=== PATIENT | male | born 1935 | race Caucasian/White ===

== ENCOUNTER 2024-02-20 13:50 | Inpatient (IN) | payer MEDICARE, SELFPAY ==
[2024-02-19] VITALS (17 sets, daily range): BP systolic 121–174; BP diastolic 59–116; PULSE 83–114; BMI 25.9; BMI 26.4
[2024-02-19 13:24] LABS: % Basophils 0.6 % (0-2); % Immature Granulocytes 0.2 % (0-0.5); % Lymphocytes 14.2 % (20.5-51.1); % Monocytes 10.9 % (1.7-9.3); % Neutrophils 71.1 % (42.2-75.2); Absolute Eosinophils 0.2 10^3/uL (0-0.7); Absolute Lymphocytes 0.9 10^3/uL (1.2-3.4); Absolute Monocytes 0.7 10^3/uL (0.1-0.6); Absolute Neutrophils 4.5 10^3/uL (1.4-6.5); Hematocrit 42.8 % (39.0-52.0); Hemoglobin 14.9 g/dL (13.0-18.0); Mean Corp Hgb Conc. 34.8 g/dL (33.0-37.0); Mean Corpuscular Hgb 31.4 pg (27.0-31.0); Mean Corpuscular Volume 90.1 fL (80.0-94.0); Nucleated Red Blood Cells % 0 % (-); Platelet Count 160 10^3/uL (130-400); Red Blood Cell Count 4.75 10^6/uL (4.70-6.10); Red Cell Dist. Width 13.4 % (11.5-14.5); White Blood Cell Count 6.3 10^3/uL (4.8-10.8)
[2024-02-19 13:29] LABS: ALT (SGPT) 20 U/L (0-50); AST (SGOT) 25 U/L (17-59); Albumin 4.2 g/dl (3.5-5.0); Alkaline Phosphatase 80 U/L (38-126); Blood Urea Nitrogen 17 mg/dl (9-20); Calcium 8.9 mg/dl (8.4-10.2); Carbon Dioxide 28 mmol/L (22-30); Chloride 95 mmol/L (98-107); Estimated Creatinine Clearance 53 ml/min; Glucose 118 mg/dl (70-99); Potassium 4.7 mmol/L (3.5-5.1); Sodium 133 mmol/L (135-145); Total Bilirubin 0.8 mg/dl (0.2-1.3); Total Protein 6.6 g/dl (6.3-8.2); eGFR > 60.00
[2024-02-19 13:40] LABS: Troponin I < 0.012 ng/ml
--- NOTE | 2024-02-19 13:46 | ED.GENMED ---
History of Present Illness
General
Chief Complaint: Fainting/Passed Out
Source: patient
Time Seen by Provider: 02/19/24 13:19
History of Present Illness
History of Present Illness:
88-year-old male with past medical history of TIA, COPD, CAD status postcardiac stenting, AAA status postrepair in 2017 presenting to the emergency department for evaluation with EMS after patient had a syncopal episode while at home sitting on his
patio drinking his coffee. states that she was going to check on the patient when she looked out the window when she saw him start to lean back in his chair, shake and then go limp, never fell out of the chair but was having a hard time
awakening the patient. She went inside and called 911, went back out to see the patient who had started to awaken but seemed confused for about 2 to 3 minutes following the events and then was back to his usual self. does report that patient
had urinary nonsense during this time. Patient has had a few of these episodes in the past noting 1 about 3 weeks ago as well as a few back in 2021. Patient has been worked up by cardiology for this and has worn a Holter monitor but no specific
etiologies found. does note that the patient has never been seen by neurology for any seizure, workup either. Patient states he feels great presently in the ER denying any headaches, visual changes, focal weakness or numbness, chest pain,
abdominal pain, back or flank pain or any other concerns.
Past History
Past History
ED Past Medical History: CAD, CVA, HTN, Hypercholesterolemia and Other (TIAs x2, hypertension, abdominal aortic aneurysm)
ED Past Surgical History: Orthopedic, Tonsilectomy and Other (Endovascular AAA repair)
Social History
Tobacco: Former smoker
Alcohol: None
Drug: None
Personal:
Living: with family
Employment: Retired
Family History
Family History: Negative Diabetes or CAD
Review of Systems
Review of Systems
All Other Systems: ROS reviewed and negative except as documented in HPI and ROS
Phy Exam
Physical Exam
Physical Exam:
GENERAL: Alert , in no apparent distress
HEAD: NCAT
EYE: pupils equal and reactive, pupils 3mm b/l
NECK: Supple
ENT: o/p clr, mmm. no tongue laceration
CARDIAC: Regular rate and rhythm .
LUNGS: Clear breath sounds bilaterally, no acute respiratory distress, no wheezes/rales/rhonchi
ABDOMEN: Soft, without focal tenderness, no r/g, no cvat
NEUROLOGICAL: Alert and oriented, no focal neuro deficits
SKIN: Warm and dry, skin intact.
MUSCULOSKELETAL: No edema, well perfused.
PSYCH: Normal and appropriate interaction.
Scores
Heart Failure Risk
Heart Failure Risk Score: Not Applicable
Heart Score for Chest Pain Patients
STEMI patient?: Not applicable
Withdrawal Assessment of Alcohol
Withdrawal Assessment Completed?: Not applicable
Course
Orders/Labs/Results
Orders:
Orders
02/19/24 12:47
EKG [Electrocardiogram (*1)] Urgent
Reason for Study: Syncope
EKG- Treatment ONCE
02/19/24 12:54
Comprehensive Metabolic Panel Urgent
Magnesium Urgent
Comment: ADD ON
02/19/24 12:55
Complete Blood Count/With Diff Urgent
Troponin I Urgent
02/19/24 13:40
Add On- LAB Urgent
Tests Added?: magnesium
Orthostatic VS- Treatment ONCE
02/19/24 13:41
CT Head W/o Iv Contrast Urgent
Comment:
Reason For Exam: recurring syncope, ? seizure like activity
Abnormal Lab Results
02/19/24 02/19/24
12:54 12:55
MCH 31.4 H pg
(27.0-31.0)
Absolute Lymphs (auto) 0.9 L 10^3/uL
(1.2-3.4)
Absolute Monos (auto) 0.7 H 10^3/uL
(0.1-0.6)
Lymphocytes % 14.2 L %
(20.5-51.1)
Monocytes % 10.9 H %
(1.7-9.3)
Sodium 133 L mmol/L
(135-145)
Chloride 95 L mmol/L
(98-107)
Glucose 118 H mg/dl
(70-99)
02/19/24 12:55
02/19/24 12:54
Vital Signs
Initial and Last Documented VS:
Initial Vital Signs
Temp Pulse Resp BP Pulse Ox
98.4 F 81 18 174/88 97
02/19/24 12:48 02/19/24 12:48 02/19/24 12:48 02/19/24 12:48 02/19/24 12:48
Last Documented Vital Signs
Temp Pulse Resp BP Pulse Ox
98.4 F 74 20 141/115 97
02/19/24 12:48 02/19/24 15:30 02/19/24 15:30 02/19/24 15:27 02/19/24 14:55
Building Drafter consulted with Physician
Building Drafter consulted with physician?: Yes
Name of Physician Consulted: Ella
MDM/Problems Addressed
Differential Diagnosis Includes:
Cardiac dysrhythmia/arrhythmia, valvular dysfunction, seizure, electrolyte derangement, less concern for mass or intracranial bleeding
MDM/Problems Addressed:
88-year-old male presenting the emergency department for evaluation following a witnessed syncopal event with reporting that patient had body shaking and then went limp, was out for maybe 30 seconds or so and that had a 2 to 3-minute period
following where he seemed confused, urinary incontinence but then was back to his usual self. Patient has had at least 4 or 5 of these similar episodes with no exact etiology found. Patient asymptomatic presently. Will check labs, CT of the head,
orthostatics and reassess following. Given age and chronic medical conditions leaning towards admission for further evaluation and monitoring with telemetry and possible neurologic evaluation as patient has yet to undergo any neuro testing for
these symptoms.
*EKG
Heart Rate: 83
Rate: normal
Rhythm: sinus
[place]: left axis deviation
Interval: first degree heart block
*Family Medicine Chair Interpretation
Rate: normal
Rhythm: sinus
*Critical Care Note
Total Time (30-74mins, 75-104mins- exclusive of procedures): Not Applicable
Data Reviewed
Review of Other/Old Records Reveals: Labs and Records
Patient Management
Discussion with other providers: Hospitalist
Escalation/DeEscalation of care consider admission/obs:
Patient labs unremarkable. Remains stable and in NSR. Given age and frequency of syncope will admit for eval and monitoring of cardiogenic syncope vs seizure. Hospitalist team accepts for continued evaluation and treatment.
ED Attending Note
-
Portions of this chart may have been created with voice recognition software.� Occasional wrong word or��sound alike� substitutions may have occurred due to the inherent limitations of voice recognition software.
Discharge Plan
Departure
Patient Disposition: Admit
Date of Disposition: 02/19/24
Time of Disposition: 16:37
Presentation/result/management discussed w/ accepting MD/DO: Hospitalist
Discharge Problem:
Syncope
Prescriptions:
No Action
benazepril 40 MG tablet
40 mg PO DAILY
carvedilol [Coreg] 25 MG tablet
25 mg PO BID
atorvastatin 40 MG tablet
40 mg PO HS
albuterol sulfate 1 PUFF HFA aerosol inhaler
2 puff inhalation R Q4HPRN PRN (Reason: shortness of breath)
multivitamin with folic acid [Tab-A-Emmanuel] 1 TABLET tablet
1 tab PO DAILY
vit C,X-Ol-yfcuf-lutein-zeaxan [PreserVision AREDS-2] 1 EACH capsule
1 cap PO BID
aspirin 81 MG tablet,chewable
81 mg PO DAILY
amlodipine 5 MG tablet
5 mg PO DAILY
Referrals:
Emily Vlilarreal MD [Family Provider] -
Interventions
Interventions:
*Risk Screen - Suicide Last Done: 02/19/24 12:51
*General Assessment Last Done: 02/19/24 12:51
*Neglect/Abuse Screening Last Done: 02/19/24 12:51
*ED COVID-19 Vaccine History Last Done: 02/19/24 12:51
ED- Cardiac Assessment Last Done: 02/19/24 14:23
ED- Neurological Assessment Last Done: 02/19/24 14:23
Discharge Date and Time
Print Language: LEBANESE
[2024-02-19 14:34] LABS: Magnesium 2.1 mg/dl (1.6-2.3)
--- NOTE | 2024-02-19 17:40 | HPS.HSE ---
Family Physician
-
Family Physician: Emily Villarreal
Chief Complaint
-
Syncopal episode
History of Present Illness
88 y/o male with PMHx AAA s/p repair 2017 CAD status stenting, TIA x 2, hypertension, hyperlipidemia, anxiety presented to ED after passing out. Patient's stated that around 11:30 AM while patient was sitting on the patio in the sun, she
noticed his head started to shake and then slump over. She tried to wake him up, but she could not. EMS was called. Patient was passed out for about 10 to 15 minutes with a small amount of urinary incontinence (no history of urinary
incontinence). Patient stated that prior to passing out, he did not feel any nausea, heart palpitations, lightheadedness, chest pain, sweating. He just felt like he was dozing off to take a nap. When he woke up, he also stated he felt fine with
no symptoms just like he was getting up from a nap. stated he seemed confused for about 2 to 3 minutes after he woke up, but then okay. She also stated he looked pale, had slightly blue lips, and decreased respiratory rate with shallow
breaths. Patient's stated systolic blood pressure to be 102 with EMS. He currently feels perfectly fine and has no complaints. He denies bitting his tongue, any numbness, tingling, weakness, abdominal or flank pain.
The patient stated that this has happened before 2 to 3 weeks ago. He was also outside on the patio in the sun when his son noticed him slumped over. and son tried to wake him up to no avail. Called EMS and brought him inside and lifted
his legs up. Patient woke up after about 10 minutes and was okay. Also had urinary incontinence.
He had 2 similar events in May and July 2021. Further workup at the hospital was done revealing no clear etiology. Patient saw outpatient system dispatcher as well. Wore a 2-week Holter monitor with no clear underlying cause. He was on a
diuretic at that time which was discontinued.
Patient arrived to the ED hypertensive blood pressure 174/88, Head CT negative for acute intracranial etiology, EKG revealed 1st degree heart block with prolonged QRS from prior, Sodium 133, troponin (-), orthostatic vitals (-).
Medical History
Past Medical History
Past Medical History: Reports Other (AAA s/p repair 2016, CAD status post stenting, TIA x 2, hypertension, hyperlipidemia, anxiety, macular degeneration)
Past Surgical History: Reports Orthopedic, Tonsilectomy and Other (AAA repair, endarterectomy, kidney surgery years ago due to former infection unspecified)
Social History
Tobacco: Former Smoker (Quit in 1981)
Alcohol: None
Drug: None
Personal:
Living: With Family
Employment: Retired
Family History
Family History: Other (No diabetes or coronary artery disease)
Allergies / Home Medications
Allergies reflects when Allergies were last updated in [employer].
Home Medications with original date entered in [employer]
Allergy/Medication List:
Allergies
Allergy/AdvReac Type Severity Reaction Status Date / Time
No Known Allergies Allergy Verified 05/26/21 14:32
Home Medications
benazepril 40 mg tablet 40 mg PO DAILY 07/28/11
carvedilol 25 mg tablet (Coreg) 25 mg PO BID 05/12/13
atorvastatin 40 mg tablet 40 mg PO HS 05/21/16
albuterol sulfate 90 mcg/actuation aerosol inhaler 2 puff inhalation R Q4HPRN PRN shortness of breath 03/18/17
multivitamin with folic acid 400 mcg tablet (Tab-A-Emmanuel) 1 tab PO DAILY 03/18/17
vit C 250 mg-vit E 90 mg-zinc 40 mg-copper 1 [id number]-mwcpab capsule (PreserVision AREDS-2) 1 cap PO BID 03/18/17
aspirin 81 mg chewable tablet 81 mg PO DAILY 07/19/17
amlodipine 5 mg tablet 5 mg PO DAILY 05/26/21
diazepam 2 mg tablet 2 mg PO BIDPRN PRN anxiety 02/19/24
Review of Systems
-
History Source: Patient
A 12 point ROS was completed and negative except as noted: Yes
Constitutional: Reports No Symptoms
EENT: Reports No Symptoms
Respiratory: Reports No Symptoms
Cardiac: Reports No Symptoms
Abdomen/GI: Reports No Symptoms
: Reports No Symptoms
Neurological: Reports No Symptoms
Psych: Reports Calm
Physical Exam
Vital Signs
Vital Signs
Temp Pulse Resp BP Pulse Ox
98.4 F 76 15 168/79 93
02/19/24 12:48 02/19/24 16:45 02/19/24 16:45 02/19/24 16:00 02/19/24 16:45
Physical Exam
General: No Apparent Distress and Comfortable
HEENT: NormoCephalic and PERRLA
Respiratory: Clear
Cardiac: S1/S2 and Regular Rhythm; No Murmur or Carotid Bruits
GI: Soft, Non Tender, Non Distended and Normal Bowel Sounds
Genito-urinary: Deferred by me
Musculoskeletal: No Edema
Skin: Warm
Neuro: AO x 3
Psych: Calm
Laboratory Results
-
02/19/24 12:55
02/19/24 12:54
Laboratory Results
Total Bilirubin 0.8 mg/dl (0.2-1.3) 02/19/24 12:54
AST 25 U/L (17-59) 02/19/24 12:54
ALT 20 U/L (0-50) 02/19/24 12:54
Alkaline Phosphatase 80 U/L (38-126) 02/19/24 12:54
Troponin I < 0.012 ng/ml 02/19/24 12:55
Impression/Plan
-
IMPRESSION:
88-year-old male presents with syncopal episode that lasted 10 to 15 minutes without prodrome or postictal state. On high-dose carvedilol and new EKG changes of first-degree AV heart block and increased QRS interval compared to prior.
PLAN:
Syncopal episode
- Cardiac etiology more likely than neurologic as no post-ictal state and occurred while sitting down
- New changes in EKG from prior with 1 degree AV heart block and QRS 110 prior 90.
- On high dose Carvedilol for many years but could play a part
- Troponin is negative, prior echo 02/25 preserved ejection fraction 60 to 65%
� Orthostatics negative
- Observation with telemetry
�Cardiology consulted
Hyponatremia
- Na 133
- Repeat BMP in am
Anxiety
� Takes diazepam 2 mg twice daily as needed for anxiety
� Stated he rarely takes it
� Urine toxicology to evaluate whether he had benzos in his system during syncopal episode
Coronary artery disease status post stenting
� Continue ASA
� Continue statin
Essential HTN
- Elevated upon arrival to ED
� Now 136/78
� Continue Benazepril, carvedilol, amlodipine
Hyperlipidemia
� Continue statin
History of TIA x 2
� Continue ASA
Hx AAA s/p repair 2017
- Receives annual aortic US for monitoring
DNR
DVT enoxaparin
--- NOTE | 2024-02-19 18:18 | W.PN.UPDATE ---
Update Note
Progress Note Update
Seen and examined by me independently in collaboration with the medical student Jeanine.
Past medical history/social history/medication/allergies reviewed.
Lab data and imaging data reviewed.
Presents with episodes of unresponsiveness.
History is from the who witnessed the episode.
Patient had a usual day. He had his breakfast and at around 11:00 he went to the [employer] to play on his piano. when checked on him from a distant ,she thought his head was shaking a bit and when she went out to [employer] he was found to be slumped
over the piano. He was unresponsive. She tried to slap him to wake him up but did not respond. He looked bit pale but no sweating. Respirations are okay. the says he probably was unresponsive for 12 to 15 minutes. She called the
ambulance when the ambulance came he started to come around. When he started come around she did not think he was confused. Patient remembers coming around but not going into it. He does not remember having a prodrome.
He denies any tongue biting now. No incontinence of stools. He was incontinent of urine.
and does not have any issues or palpitations. Denies any orthostatic dizziness or lightheadedness. No changes made to his cardiac regimen recently.
He had a similar episode 3 weeks ago while he was out on the porch sitting at the piano. called an ambulance and they put him on the floor lifted the legs and he was okay so did not come into the hospital. Similar thing happened to him in
2021 twice; he had Holter monitor then.
Currently asymptomatic. Nonfocal neurologically. Heart sound S1 plus S2 heard without murmur. Chest clear.
EKG shows first-degree heart block which is new to him and there is slightly prolongation of QRS duration at 110. No arrhythmias. Negative orthostasis in the ER. Negative CT head for any acute findings. Mild hyponatremia 133 noted otherwise labs
are unremarkable.
Syncope-no prodrome, changes in EKG and a high dose of BB make cardiac etiology a possibility. But prolonged episode goes against it. Admit as Obs. Follow on tele. Consult cards.
Doubt neurological event-no prodrome or aura for seizure, no post recovery confusion, nonfocal neurologically. The transient head movements and urinary incontinence may be secondary to post syncope convulsion and not seizure.
[2024-02-19] MEDS: LOVENOX 40 MG SC (20:42)
[2024-02-19] MEDS: OCUVITE SOFTGEL 1 CAP PO (20:43)
[2024-02-19] MEDS: LIPITOR 40 MG PO (20:43)
[2024-02-19] MEDS: COREG 25 MG PO (20:43)
--- NOTE | 2024-02-19 22:00 | PTCARENOTE ---
Received pt from ED, ambulated from stretcher to bed. AAOx3, VSS, no complaints of pain
[2024-02-20 03:18] VITALS: BP 139/64
[2024-02-20 04:00] LABS: Amphetamines Negative (Negative); Barbiturates Negative (Negative); Benzodiazepines Positive (Negative); Buprenorphine Negative (Negative); Cocaine Negative (Negative); Marijuana Negative (Negative); Methadone Negative (Negative); Methamphetamines Negative (Negative); Opiates Negative (Negative); Phencyclidine Negative (Negative); Tricyclic Antidepressants Negative (Negative)
[2024-02-20 04:09] LABS: Fentanyl, Urine Negative (Negative)
[2024-02-20 06:53] LABS: Hemoglobin 13.8 g/dL (13.0-18.0); Mean Corp Hgb Conc. 34.5 g/dL (33.0-37.0); Mean Corpuscular Hgb 31.1 pg (27.0-31.0); Mean Corpuscular Volume 90.1 fL (80.0-94.0); Mean Platelet Volume 8.9 fL (7.4-10.4); Platelet Count 157 10^3/uL (130-400); Red Blood Cell Count 4.44 10^6/uL (4.70-6.10); Red Cell Dist. Width 13.4 % (11.5-14.5)
[2024-02-20 07:38] LABS: Blood Urea Nitrogen 15 mg/dl (9-20); Calcium 8.5 mg/dl (8.4-10.2); Carbon Dioxide 26 mmol/L (22-30); Chloride 97 mmol/L (98-107); Estimated Creatinine Clearance 60 ml/min; Glucose 85 mg/dl (70-99); Potassium 4.3 mmol/L (3.5-5.1); Sodium 133 mmol/L (135-145); eGFR > 60.00
[2024-02-20 07:50] VITALS: BP 148/75
[2024-02-20] MEDS: OCUVITE SOFTGEL 1 CAP PO ×2 (09:10→20:16)
[2024-02-20] MEDS: ZESTRIL 40 MG PO (09:10)
[2024-02-20] MEDS: NORVASC 5 MG PO (09:11)
[2024-02-20] MEDS: FLUSH (NSS) 1 FLUSH IV (09:11)
[2024-02-20] MEDS: COREG 25 MG PO ×2 (09:11→20:16)
[2024-02-20] MEDS: LOW STRENGTH ASPIRIN 81 MG PO (09:11)
[2024-02-20] MEDS: THERAGRAN 1 TABLET PO (09:11)
[2024-02-20 11:03] VITALS: BP 127/79
--- NOTE | 2024-02-20 13:04 | W.PN.HOSP.TC ---
Addendum entered and electronically signed by Kris Ordoñez MD 02/20/24 13:50:
Seen and examined by me independently in collaboration with the medical doctor nuclear medicine Jeanine.
Lab data and imaging data reviewed.
Addendum as below :
No further syncope. Patient does admit taking Valium on Wednesday of the week. Denies taking any Valium on the day of the event.
He uses Valium as needed for anxiety.
So far nuclear monitoring technician shows some rhythm disturbance. There is unexplained spikes of complexes which to me sounds like muscle contractions. In between the spikes there is prolongation of QRS complexes. Asymptomatic through these episodes.
DW Cards -unclear if it is heart block but will like to cw tele monitor for another 24hr and go from there.
Since his hospital level of care would be crossing 2 midnights feels he is appropriate for inpatient level of care.
Original Note:
Today's Communication/Plan
-
Discharge pending cardiology recommendation
Assessment / Plan
Assessment / Plan
Syncopal episode
- Cardiac etiology more likely than neurologic as no post-ictal state and occurred while sitting down
- New changes in EKG from prior with 1 degree AV heart block and QRS 110 prior 90.
- On high dose Carvedilol for many years but could play a part
- Troponin is negative, prior echo 02/25 preserved ejection fraction 60 to 65%
� Orthostatics negative
- Observation with telemetry -> overnight abnormal rhythm, defer to cardiology team
� Discharge today pending cardiology input
Hyponatremia
- Na 133 -> 133 stable
- Repeat BMP in am
Anxiety
� Takes diazepam 2 mg twice daily as needed for anxiety
� Stated he rarely takes it
� Urine toxicology revealed benzo
- when asked further, took last dose bone drier. Unlikely to have contributed to syncopal episode
Coronary artery disease status post stenting
� Continue ASA
� Continue statin
Essential HTN
- Elevated upon arrival to ED
� stable
� Continue Benazepril, carvedilol, amlodipine
Hyperlipidemia
� Continue statin
History of TIA x 2
� Continue ASA
Hx AAA s/p repair 2016
- Receives annual aortic US for monitoring
DNR
DVT enoxaparin
Anticipated Discharge: Today
Subjective/Interval History
-
Date of Service: February 20, 2024
Objective Data
-
Labs:
Laboratory Results
02/20/24
06:25
WBC 6.0
Hgb 13.8
Hct 40.0
Plt Count 157
Sodium 133 L
Potassium 4.3
Chloride 97 L
Carbon Dioxide 26
BUN 15
Creatinine 0.8
Glucose 85
Calcium 8.5
Vital Signs:
Vital Signs
Temp Pulse Resp BP Pulse Ox
98.4 F 90 16 127/79 94
02/20/24 11:03 02/20/24 11:03 02/20/24 11:03 02/20/24 11:03 02/20/24 11:03
I&O
02/19/24 02/20/24 02/21/24
06:59 06:59 06:59
Output Total 500 / 500
Balance -500 / -500
Review of Systems
-
History Source: Patient
Constitutional: Reports No Symptoms
EENT: Reports No Symptoms Reported
Respiratory: Reports No Symptoms
Cardiac: Reports No Symptoms
Abdomen/GI: Reports No Symptoms
Genitourinary: Reports No Symptoms
Neuro: Reports No Symptoms
Physical Exam
-
General: Well Developed and Comfortable
HEENT: Normocephalic
Respiratory: Clear to Auscultation
Cardiac: Regular Rhythm and S1/S2
GI: Soft, Nontender, Nondistended and Normal Bowel Sounds
Musculoskeletal: No Edema
Skin: Warm
Neuro: AO x 3
Psych: Calm
--- NOTE | 2024-02-20 13:43 | CON.CAR ---
Consultation
Consultation Request
Date/Time Consultation Requested: February 20, 2024 9 AM
Date/Time Consultation Performed: February 20, 2024 1:45 PM
Requesting Provider: Hospitalist
Performing Provider: Hammad Christine
Reason for Consultation: Syncope
Medical History
-
Chief Complaint: Syncope
History of Present Illness:
88-year-old male with past medical history of AAA status post repair in 2017, CAD status post stenting, TIA, hypertension, dyslipidemia, and anxiety who was unresponsive yesterday late morning. Apparently, he was out on his patio enjoying the sun
when his noticed that he was slumped over and had some head shaking. She was unable to awaken him. She called EMS and eventually after about 10 to 15 minutes he then awoke. Apparently, he had some mild urinary incontinence. He feels as if
he just doze off and took a nap and he has no significant symptoms. His says that he looked pale with slightly blue lips and decreased respirations. Blood pressure when EMS arrived was systolic of 102.
Currently, today he feels fine with no residual symptoms. On monitor it does look that he could potentially have heart block, however, there is artifact during this time and is unclear to me if this is due to artifact or true heart block.
Past Medical History
Past Medical History: Other (AAA status post repair in 2017, CAD status post stenting, TIA, hypertension, dyslipidemia, and anxiety)
Past Surgical History: Other (Orthopedic, Tonsilectomy and Other (AAA repair, endarterectomy, kidney surgery years ago due to former infection unspecified))
Social History
Tobacco: Former Smoker
Alcohol: None
Drug: None
Personal:
Living: With Family
Employment: Retired
Family History
Family History: Reviewed & Not Pertinent
Allergies / Home Medications
Allergy/AdvReac Type Severity Reaction Status Date / Time
No Known Allergies Allergy Verified 05/26/21 14:32
�Medication �Instructions �Recorded �Confirmed �Type
benazepril 40 mg tablet 40 mg PO DAILY Blood Pressure 07/28/11 02/19/24 History
carvedilol 25 mg tablet (Coreg) 25 mg PO BID Heart 05/12/13 02/19/24 History
Disease/Condition
atorvastatin 40 mg tablet 40 mg PO HS High Cholesterol 05/21/16 02/19/24 History
albuterol sulfate 90 mcg/actuation 2 puff inhalation R Q4HPRN PRN 03/18/17 02/19/24 History
aerosol inhaler shortness of breath
multivitamin with folic acid 400 1 tab PO DAILY Supplement 03/18/17 02/19/24 History
mcg tablet (Tab-A-Emmanuel)
vit C 250 mg-vit E 90 mg-zinc 40 1 cap PO BID Supplement 03/18/17 02/19/24 History
mg-copper 1 [id number]
capsule (PreserVision AREDS-2)
aspirin 81 mg chewable tablet 81 mg PO DAILY Blood Clot 07/19/17 02/19/24 History
Prevention/Tx
amlodipine 5 mg tablet 5 mg PO DAILY Blood Pressure 05/26/21 02/19/24 History
diazepam 2 mg tablet 2 mg PO BIDPRN PRN anxiety 02/19/24 02/19/24 History
Review of Systems
-
All other systems: Negative unless noted
Physical Exam
Vital Signs
Temp Pulse Resp BP Pulse Ox
98.4 F 90 16 127/79 94
02/20/24 11:03 02/20/24 11:03 02/20/24 11:03 02/20/24 11:03 02/20/24 11:03
Lab Results
02/20/24 06:25
02/20/24 06:25
Troponin I < 0.012 ng/ml 02/19/24 12:55
Physical Exam
General: Well Developed, Well Nourished and No Apparent Distress
HEENT: Normocephalic
Respiratory: Clear and Non Labored Respirations
Cardiac: S1/S2 and Regular Rhythm
GI: Soft
Musculoskeletal: No Edema
Skin: Warm and Dry
Neuro: AO x 3
Psych: Calm
Impression / Plan
-
A/P:88-year-old male with past medical history of AAA status post repair in 2017, CAD status post stenting, TIA, hypertension, dyslipidemia, and anxiety who was unresponsive yesterday late morning. Overall, it is unclear what the exact cause of
this was. However, on monitor it does appear as if he could have some heart block.
Syncope possible advanced heart block
-Continue on monitor for 24 more hours
CAD status post stenting
-Continue aspirin and statin
Dyslipidemia
-Continue statin
Hypertension
-Continue amlodipine and Coreg
Data Reviewed
-
EKG: Tracing Personally Visualized and interpreted (sr)
Medical Tests (Nuc Med, Echo etc): Report Reviewed by me
Labs: Labs Reviewed by me
[2024-02-20 15:40] VITALS: BP 124/74
[2024-02-20] MEDS: LOVENOX 40 MG SC (17:52)
[2024-02-20 19:21] VITALS: BP 151/85
[2024-02-20] MEDS: LIPITOR 40 MG PO (22:19)
[2024-02-20 23:32] VITALS: BP 125/66
[2024-02-21 03:51] VITALS: BP 123/79
[2024-02-21 06:58] VITALS: BP 151/78
--- NOTE | 2024-02-21 08:11 | W.PN.HOSP.TC ---
Addendum entered and electronically signed by Sebastian Roblero MD 02/22/24 06:25:
Attending Addendum:
I saw and evaluated the patient. I reviewed the resident�s note and agree with findings and plan as documented in the resident�s note. Sub: no further syncope. Denies CP palps, seen with son wants to go home. Full 12 point ROS reviewed and negative
except as documented Exam: Vitals reviewed in chart GEN-NAD heart RRR lungs clear abd soft LE no edema
# Syncopal episode
- doubt cardiac etiology
- d/c cards stable to DC with OP monitor
- reviewed EKG likely artifact
- Troponin is negative, prior echo 02/25 preserved ejection fraction 60 to 65%
� Orthostatics negative
� Discharge today
# Hyponatremia
- Na 133 -> 134 stable
- Repeat BMP in am
# Anxiety
� Takes diazepam 2 mg twice daily as needed for anxiety
� Urine toxicology revealed benzo
- when asked further, took last dose eye specialist
- advised to limit use
Coronary artery disease status post stenting
� Continue ASA
� Continue statin
Essential HTN
� Continue Benazepril, carvedilol, amlodipine
Hyperlipidemia
� Continue statin
History of TIA x 2
� Continue ASA
Hx AAA s/p repair 2016
- Receives annual aortic US for monitoring
DNR
DVT enoxaparin
DC home today
Time spent coordinating care, DC planning, review of DC plan of care with resident, transition of care, review of records, med rec/scripts sent electronically, consults, notes, d/w consultants, nursing, family, and CM� 35 mins
Original Note:
Today's Communication/Plan
-
Plan for discharge.
Assessment / Plan
Assessment / Plan
Assessment-
88-year-old male with PMHx significant for AAA s/p repair in 2017, CAD status post PCI, TIA, hypertension, dyslipidemia and anxiety presented to the hospital for an unresponsive episode labeled as syncope for evaluation.
Plan-
Syncopal episode-
It was initially thought to be of cardiac etiology, and there were few suspected PVCs in his telemetry, cardiology was consulted, and cardiology does not think it is a syncopal episode or primary reason as cardiac.
EKG showed first-degree AV block with QRS at 110.
Patient's orthostatic vitals are negative. Troponin is negative, echocardiogram in 02/25 showed normal ejection fraction at 60 to 65%.
Patient took Valium 2 mg about 12 hours prior to having syncopal episode, questionable event after Valium.
Cardiology called at spells rather than syncopal episode.
CT head negative.
Will also consider outpatient evaluation for seizure disorder.
Hyponatremia
Serum sodium has been consistently at 133-134 throughout the hospital admission.
Anxiety
on diazepam 2 mg twice daily as needed.
Hold diazepam.
Urine toxicology revealed benzodiazepine. Less likely that his syncopal episode is from diazepam but also could not exclude the possibility given half-life of diazepam.
CAD s/p PCI
Continue ASA and statin.
Essential HTN
Benazepril switched to lisinopril.
Continue carvedilol and amlodipine.
Hyperlipidemia
Continue statin
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
TIA x 2
Anxiety
AAA s/p repair 2016
DVT enoxaparin
CODE STATUS full code.
Anticipated Discharge: Today
Subjective/Interval History
-
Date of Service: February 21, 2024
Patient has no symptoms overnight.
Objective Data
-
Labs:
Laboratory Results
02/21/24
07:28
Sodium Pending
Potassium Pending
Chloride Pending
Carbon Dioxide Pending
BUN Pending
Creatinine Pending
Glucose Pending
Calcium Pending
Vital Signs:
Vital Signs
Temp Pulse Resp BP Pulse Ox
97.8 F 86 18 123/79 96
02/21/24 03:51 02/21/24 03:51 02/21/24 03:51 02/21/24 03:51 02/21/24 03:51
I&O
02/20/24 02/21/24 02/22/24
06:59 06:59 06:59
Intake Total 480 / 480
Output Total 500 / 500 300 / 300
Balance -500 / -500 180 / 180
Review of Systems
-
History Source: Patient
Constitutional: Reports No Symptoms
Respiratory: Reports No Symptoms
Cardiac: Reports No Symptoms
Abdomen/GI: Reports No Symptoms
Breast: Reports No Symptoms
Genitourinary: Reports No Symptoms
Musculoskeletal: Reports No Symptoms
Skin: Reports No Symptoms
Neuro: Reports No Symptoms
Endocrine: Reports No Symptoms
Hematologic / Lymphatic: Reports No Symptoms
Allergy / Immunology: Reports No Symptoms
Physical Exam
-
General: No Apparent Distress and Comfortable
HEENT: Moist Mucous Membranes
Respiratory: Clear to Auscultation; Negative Wheezes, Rales or Rhonchi
Cardiac: Regular Rhythm and S1/S2; Negative Murmur, Rub or Gallop
GI: Soft, Nontender, Nondistended and Normal Bowel Sounds
Musculoskeletal: No Clubbing, No Cyanosis and No Edema
Neuro: AO x 3
Psych: Calm
Data Reviewed
-
Diagnostic Radiology: Image personally visualized and interpreted and Report Reviewed by me
CT Scan: Image personally visualized and interpreted and Report Reviewed by me
Medical Tests (Nuc Med, Echo etc): Image personally visualized and interpreted and Report Reviewed by me
Labs: Labs Reviewed by me and Discussed with Physician
Old Records: Reviewed
[2024-02-21 08:58] LABS: Blood Urea Nitrogen 17 mg/dl (9-20); Calcium 8.4 mg/dl (8.4-10.2); Carbon Dioxide 29 mmol/L (22-30); Chloride 96 mmol/L (98-107); Estimated Creatinine Clearance 60 ml/min; Glucose 85 mg/dl (70-99); Potassium 4.7 mmol/L (3.5-5.1); Sodium 134 mmol/L (135-145); eGFR > 60.00
--- NOTE | 2024-02-21 09:28 | W.PN.CD ---
Today's Communication / Plan
-
There is no bradycardia
Tele strips are just artifact, careful review shows clear T waves and the artifact obscures the the preceding QRS complex
He has had about 3 episodes over more than 1 yr with no falls or true syncope
His 'spells' are VERY unlikely to be of cardiac etiology
We will arrange for a 30 day monitor and a followup in our office
Cardiology will sign off
Impression / Plan
-
A/P:88-year-old male with past medical history of AAA status post repair in 2017, CAD status post stenting, TIA, hypertension, dyslipidemia, and anxiety who was unresponsive yesterday late morning. Overall, it is unclear what the exact cause of
this was. However, on monitor it does appear as if he could have some heart block.
Spells
- I would not call this SYNCOPE
Artifact on tele, no real bradycardia seen here in the hospital
CAD, stable, status post prior stenting, Continue aspirin and statin
Dyslipidemia, stable, continue statin
Hypertension, stable continue amlodipine and Coreg
Subjective: No complaints
Physical Exam
Vital Signs/Labs
Vital Signs
Temp Pulse Resp BP Pulse Ox
97.8 F 86 18 123/79 96
02/21/24 03:51 02/21/24 03:51 02/21/24 03:51 02/21/24 03:51 02/21/24 03:51
02/20/24 02/21/24 02/22/24
06:59 06:59 06:59
Actual Weight 76.345 kg
02/20/24 06:25
02/21/24 07:28
Magnesium 2.1 mg/dl (1.6-2.3) 02/19/24 12:54
LAB Results
02/19/24
12:55
Troponin I < 0.012
Physical Exam
Constitutional: No acute distress
EENT: Anicteric
Cardiovascular: Rhythm & rate is regular and Pedal edema is absent
Respiratory: Respiratory effort normal and Lungs clear to auscul.
GI: Soft and Distention absent
Neuro/Psych: Alert
Data Reviewed
-
Date of Service: February 21, 2024
[2024-02-21] MEDS: NORVASC 5 MG PO (09:44)
[2024-02-21] MEDS: OCUVITE SOFTGEL 1 CAP PO (09:44)
[2024-02-21] MEDS: THERAGRAN 1 TABLET PO (09:45)
[2024-02-21] MEDS: ZESTRIL 40 MG PO (09:45)
[2024-02-21] MEDS: LOW STRENGTH ASPIRIN 81 MG PO (09:45)
[2024-02-21] MEDS: COREG 25 MG PO (09:45)
[2024-02-21 11:30] VITALS: BP 111/65
--- NOTE | 2024-02-21 14:39 | CM ---
manager quality improvement reviewed patient's chart and patient was admitted with HTN, per patient he lives with his spouse in a 2 story home, patient is independent with adl's and ambulation, has no dme at home, drives, has a prescription plan; uses [facility] pharmacy
in [place].
Plan: Patient to return to home at d/c with no needs.
--- NOTE | 2024-02-21 18:19 | W.DS.TRANS ---
DC Summary - Director Business Systems
-
Discharge Instructions:
Discharge Diagnosis/Procedures Syncope
Diet As tolerated
Activity As tolerated
Driving Restrictions As prior to admission
Bathing Restrictions None
Blood Work CMP in 1 week
Others Tests CBC Cardiology office will call you to set up an
outpatient monitor car operator for 30 days.
Instructions:
Stand-Alone Forms:
Changes to Home Medications: Yes
Discharge Medications:
DC Medications w/original date entered in [facility]
carvedilol 25 mg tablet (Coreg) 25 mg PO BID Heart Disease/Condition 05/12/13
atorvastatin 40 mg tablet 40 mg PO HS High Cholesterol 05/21/16
albuterol sulfate 90 mcg/actuation aerosol inhaler 2 puff inhalation R Q4HPRN PRN shortness of breath 03/18/17
multivitamin with folic acid 400 mcg tablet (Tab-A-Emmanuel) 1 tab PO DAILY Supplement 03/18/17
vit C 250 mg-vit E 90 mg-zinc 40 mg-copper 1 [id number] capsule (PreserVision AREDS-2) 1 cap PO BID Supplement 03/18/17
aspirin 81 mg chewable tablet 81 mg PO DAILY Blood Clot Prevention/Tx 07/19/17
amlodipine 5 mg tablet 5 mg PO DAILY Blood Pressure 05/26/21
Home Medication Changes
Add lisinopril 40 mg tablet 40 mg PO DAILY 30 days #30 tabs 02/21/24
Hold diazepam 2 mg tablet 2 mg PO BIDPRN PRN anxiety 02/19/24
Stop Benzapril 40mg PO Daily
Pending Results: No
--- NOTE | 2024-02-21 18:26 | W.DCSUMMARY ---
Addendum entered and electronically signed by Sebastian Roblero MD 02/22/24 06:26:
Read, reviewed, and agree. See same day progress note for additional details.
Syed Roblero MD
Original Note:
Documented by User: Amira Mitchell MD, Resident 02/21/24 18:34
Discharge Summary
Discharge Data
Date of Admission: 02/20/24
Date of Discharge: 02/21/24
-
Pending Results: No
Hospital Course
Mr. Sharpe, is an 88-year-old male with past medical history significant for AAA s/p repair in 2017, CAD s/p PCI, TIA, hypertension, dyslipidemia and carotid endarterectomy who presents to the hospital for evaluation of a spell where he passed out.
Hospital course-
Upon admission to the hospital, he has not experienced any further spells/syncope his orthostatic vitals were negative, his vital signs have been stable throughout, patient lab results showed mild hyponatremia, his CBC for 2 consecutive days was
within normal limits, his EKG showed first-degree heart block with QRS intervals at 110, his troponins were negative and his echocardiogram 1 year ago showed preserved ejection fraction, and CT head was negative as well. Patient's description of
his episodes sound more of questionable neurological etiology versus secondary to diazepam. His urine benzodiazepines was positive. His telemetry showed some abberations that cardiology thought it to be insignificant. During the hospital course
his benazepril was switched to lisinopril, his diazepam was held and rest of his home medications-carvedilol 25 mg, atorvastatin 40 mg, aspirin 81, amlodipine 5 mg, albuterol sulfate-were all continued. Cardiology decided to evaluate him with the
conveyor monitor for 1 month.
At discharge his diazepam was held, his BenzePrO was switched to lisinopril and he was advised to follow-up with his primary care for further evaluation of his spells.
Conditions VISE HAND-hyperlipidemia, CAD s/p stenting, TIA, hypertension, dyslipidemia, anxiety.
His conditions prior to admission were treated with home medication regimen and have been stable throughout this hospital course.
Discharge Plan
-
Patient Disposition: Home (Routine Discharge)
Discharge Diagnosis/Procedures: Syncope
Condition: Fair
Diet: As tolerated
Activity: As tolerated
Driving Restrictions: As prior to admission
Bathing Restrictions: None
Blood Work: CMP in 1 week
Others Tests: CBC Cardiology office will call you to set up an outpatient conveyor monitor for 30 days.
Activity Restrictions/Additional Instructions:
Hold on Diazepam for anxiety.
Follow up with your primary care for anxiety, and further evaluation of syncope.
Referrals:
Britt Babb CRNP [Specified Professional Personl] - 04/06/24 10:00 am
Emily Villarreal MD [Family Provider] -
Additional Discharge Medication Instructions: Cardiology changed your Benzapril to lisinopril. Prescription sent to your pharmacy. Follow up with primary care in 1 - 2 weeks
Prescriptions:
New
lisinopril 40 mg tablet
40 mg PO DAILY 30 Days Qty: 30 1RF
Continued
carvedilol [Coreg] 25 MG tablet
25 mg PO BID
atorvastatin 40 MG tablet
40 mg PO HS
albuterol sulfate 1 PUFF HFA aerosol inhaler
2 puff inhalation R Q4HPRN PRN (Reason: shortness of breath)
multivitamin with folic acid [Tab-A-Emmanuel] 1 TABLET tablet
1 tab PO DAILY
PreserVision AREDS-2 1 EACH capsule
1 cap PO BID
aspirin 81 MG tablet,chewable
81 mg PO DAILY
amlodipine 5 MG tablet
5 mg PO DAILY
Held
diazepam 2 mg tablet
2 mg PO BIDPRN PRN (Reason: anxiety)
Hold Instructions: Resume on 03/11/24. Please do not resume this medication before seeing your primary care.
Patient Comments:
02/19/2024: last filled 11/29/23, 30 tabs for 15 days from [facility][id number]
Discontinued
benazepril 40 MG tablet
40 mg PO DAILY
Discharge Orders:
Discharge Patient (As Directed); Ordered 02/21/24
Ordered By: Amira Mitchell
Discharge Date and Time
Discharge Date/Time: 02/21/24 15:18
Print Language: LUX[place]

Documented by User: Sebastian Roblero MD 02/22/24 06:20
Discharge Summary
Discharge Data
Date of Admission: 02/20/24
Date of Discharge: 02/22/24
Discharge Plan
-
Patient Disposition: Home (Routine Discharge)
Discharge Diagnosis/Procedures: Syncope
Condition: Fair
Diet: As tolerated
Activity: As tolerated
Driving Restrictions: As prior to admission
Bathing Restrictions: None
Blood Work: CMP in 1 week
Others Tests: CBC Cardiology office will call you to set up an outpatient conveyor monitor for 30 days.
Activity Restrictions/Additional Instructions:
Hold on Diazepam for anxiety.
Follow up with your primary care for anxiety, and further evaluation of syncope.
Referrals:
Britt Babb CRNP [Specified Professional Personl] - 04/06/24 10:00 am
Emily Villarreal MD [Family Provider] -
Additional Discharge Medication Instructions: Cardiology changed your Benzapril to lisinopril. Prescription sent to your pharmacy. Follow up with primary care in 1 - 2 weeks
Prescriptions:
New
lisinopril 40 mg tablet
40 mg PO DAILY 30 Days Qty: 30 1RF
Continued
carvedilol [Coreg] 25 MG tablet
25 mg PO BID
atorvastatin 40 MG tablet
40 mg PO HS
albuterol sulfate 1 PUFF HFA aerosol inhaler
2 puff inhalation R Q4HPRN PRN (Reason: shortness of breath)
multivitamin with folic acid [Tab-A-Emmanuel] 1 TABLET tablet
1 tab PO DAILY
PreserVision AREDS-2 1 EACH capsule
1 cap PO BID
aspirin 81 MG tablet,chewable
81 mg PO DAILY
amlodipine 5 MG tablet
5 mg PO DAILY
Held
diazepam 2 mg tablet
2 mg PO BIDPRN PRN (Reason: anxiety)
Hold Instructions: Resume on 03/11/24. Please do not resume this medication before seeing your primary care.
Patient Comments:
02/19/2024: last filled 11/29/23, 30 tabs for 15 days from [facility]#[id number]
Discontinued
benazepril 40 MG tablet
40 mg PO DAILY
Discharge Orders:
Discharge Patient (As Directed); Ordered 02/21/24
Ordered By: Amira Mitchell
Discharge Date and Time
Discharge Date/Time: 02/21/24 15:18
Print Language: [place]
== END 2024-02-21 15:18 | disposition home or self-care (01) | DRG 312 ==
LOC: 4 EAST ACU 13:50
PROVIDERS: Student in an Organized Health Care Education/Training Program; ADMITTING PHYSICIAN Internal Medicine; ATTENDING PHYSICIAN Family Medicine; CONSULT PHYSICIAN Internal Medicine Cardiovascular Disease; EMERGENCY PHYSICIAN Emergency Medicine; FAMILY PHYSICIAN Family Medicine
DX: R55 Syncope and collapse (principal); E87.1 Hypo-osmolality and hyponatremia; I10 Essential (primary) hypertension; I25.10 Atherosclerotic heart disease of native coronary artery without angina pectoris; Z95.5 Presence of coronary angioplasty implant and graft; I44.0 Atrioventricular block, first degree; E78.00 Pure hypercholesterolemia, unspecified; F41.9 Anxiety disorder, unspecified; R32 Unspecified urinary incontinence; Z66 Do not resuscitate; Z79.82 Long term (current) use of aspirin; Z79.899 Other long term (current) drug therapy; Z86.73 Personal history of transient ischemic attack (TIA), and cerebral infarction without residual deficits; Z86.79 Personal history of other diseases of the circulatory system; Z87.891 Personal history of nicotine dependence
CPT/HCPCS: 70450; 80048; 80053; 80306; 80307; 83735; 84484; 85025; 85027; 93005; 99285

== ENCOUNTER → 2024-03-08 08:53 | Outpatient (REF) | payer MEDICARE, SELFPAY | LOC: RAD 08:53 | PROVIDERS: ATTENDING PHYSICIAN Surgery Vascular Surgery; FAMILY PHYSICIAN Family Medicine | DX: I71.42 Juxtarenal abdominal aortic aneurysm, without rupture (principal) | CPT/HCPCS: 76770 ==